=== PATIENT | male | born 1985 | race Caucasian/White ===

== ENCOUNTER 2017-07-09 18:44 | Emergency (ER) | payer OTHER ==
[2017-07-09 19:05] VITALS: BP 152/83; PULSE 66; RESP 16; TEMP 98.8
[2017-07-09] MEDS ORDERED: KETOROLAC 30 MG/ML 1 ML VIAL IM STA (19:17)
[2017-07-09] MEDS ORDERED: ORPHENADRINE 30 MG/ML 2 ML VIAL IM STA (19:17)
--- NOTE | 2017-07-09 19:45 | XR ---
EXAMINATION TYPE: XR cervical spine comp DATE OF EXAM: 07/09/2017 COMPARISON: NONE HISTORY: Neck pain TECHNIQUE: 5 views FINDINGS: The cervical vertebra have normal spacing and alignment. Posterior elements are intact. Tommy ral foramina are widely patent. Atlantoaxial facet joint is normal. IMPRESSION: Normal cervical spine.
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
== END 2017-07-09 20:48 | disposition home or self-care (01) ==
LOC: EC 18:44
DX: S16.1XXA Strain of muscle, fascia and tendon at neck level, initial encounter (principal); F17.200 Nicotine dependence, unspecified, uncomplicated; Z91.018 Allergy to other foods; X58.XXXA Exposure to other specified factors, initial encounter
CPT/HCPCS: 72050; 99283; 96372 ×2; J2360; J1885